=== PATIENT | female | born 1990 | race African-American/Black ===

== ENCOUNTER 2016-11-07 08:32 | Emergency (ER) | payer OTHER ==
[~2016-11-07] VITALS: Ht 160 cm; Wt 75.0 kg
[2016-11-07 08:57] VITALS: BP 131/73
[2016-11-07] MEDS ORDERED: DEPO150I (08:57)
== END 2016-11-07 09:27 | disposition home or self-care (01) ==
LOC: M ED 08:32
DX: M79.89 Other specified soft tissue disorders (principal); J45.909 Unspecified asthma, uncomplicated; Z79.899 Other long term (current) drug therapy